=== PATIENT | female | born 1980 | race Caucasian/White ===

== ENCOUNTER 2018-11-26 16:51 | Observation (INO) ==
[2018-11-26 17:23] LABS: Basophils # (auto) 0.03 K/uL (0-0.2); Basophils % (auto) 0.3 %; Eosinophils # (auto) 0.17 K/uL (0-0.5); Eosinophils % (auto) 1.9 %; Hematocrit (blood only) 43.8 % (37-47); Hemoglobin 15.4 g/dL (12.0-16.0); Immature Granulocytes # (auto) 0.02 K/uL (0.00-0.02); Immature Granulocytes % (auto) 0.2 %; Lymphocytes # (auto) 2.39 K/uL (1.2-3.4); Lymphocytes % (auto) 26.3 %; Mean Corpuscular Hgb Conc 35.2 g/dL (32-36); Mean Corpuscular Volume 87.3 fL (80-100); Mean Platelet Volume 10.1 fL (7.4-10.4); Monocytes # (auto) 0.61 K/uL (0.11-0.59); Monocytes % (auto) 6.7 %; Neutrophils # (auto) 5.86 K/uL (1.4-6.5); Neutrophils % (auto) 64.6 %; Platelet Count 266 K/uL (130-400); RDW Coefficient of Variation 15.4 % (11.5-14.5); RDW Standard Deviation 49.4 fL (36.4-46.3); Red Blood Count 5.02 M/uL (4.2-5.4); White Blood Count 9.08 K/uL (4.8-10.8)
[2018-11-26 17:36] LABS: INR 1.1 (0.9-1.1); Partial Thromboplastin Ratio 1.1; Partial Thromboplastin Time 28.8 Seconds (21.0-31.0)
[2018-11-26 17:41] LABS: Alanine Aminotransferase 165 U/L (12-78); Albumin Level 4.4 gm/dl (3.4-5.0); Aspartate Aminotransferase 82 U/L (15-37); BUN Creatinine Ratio 9.3 (10-20); Blood Urea Nitrogen 7 mg/dl (7-18); Calcium 9.3 mg/dl (8.5-10.1); Carbon Dioxide 27 mmol/L (21-32); Chloride 106 mmol/L (98-107); Est GFR (African American) 129.2; Est GFR (Non-African American) 111.5; Glucose 99 mg/dl (70-99); Potassium 3.5 mmol/L (3.5-5.1); Sodium 139 mmol/L (136-145)
[2018-11-26 17:45] LABS: Albumin Globulin Ratio 1.2 (0.9-2); Alkaline Phosphatase 131 U/L (45-117); Bilirubin,Total 0.5 mg/dl (0.2-1); Globulin 3.7 gm/dl (2.5-4.0); Total Protein 8.1 gm/dl (6.4-8.2); Troponin I < 0.015 ng/ml (0-0.045)
--- NOTE | 2018-11-26 18:04 | XRay Report ---
XR chest 1V portable HISTORY: 37 years-old Female CP acute atypical chest pain COMPARISON: None available TECHNIQUE: Portable AP view of the chest FINDINGS: Cardiac mediastinal and hilar silhouettes are within normal limits. There is no pneumothorax, pleural effusion, focal airspace consolidation or overt pulmonary edema. Bones of the chest appear grossly i ntact. IMPRESSION: No acute process. The above report was generated using voice recognition software. It may contain grammatical, syntax o r spelling errors. Electronically signed by: Akash Londono M.D. 11/26/2018 6:02 PM
[2018-11-26] MEDS ORDERED: ASPIRIN CHEW 324 MG PO STA (18:14)
[2018-11-26 18:57] LABS: Creatine Kinase 118 U/L (26-192); Creatine Kinase MB < 1.0 ng/ml (0.5-3.6)
[2018-11-26] MEDS ORDERED: OPTIRAY 320 125ml IV PRN (19:17)
--- NOTE | 2018-11-26 19:24 | CT Scan Report ---
CT head/brain wo con CLINICAL HISTORY: 37 years-old Female with Pt c/o left arm numbness. Acute left arm numbness TECHNIQUE: Multiple axial CT images of the head were obtained without contrast. A dose lowering tech nique was utilized adhering to the principles of ALARA. CT DOSE: 537.48 mGy.cm COMPARISON: None. FINDINGS: No acute intracranial hemorrhage, midline shift, intracranial mass, hydrocephalus, territorial ischem ia or abnormal extra-axial collection. The calvarium is intact. The paranasal sinuses, mastoid air cells, and middle ear cavities are clear . IMPRESSION: No acute intracranial abnormality. The above report was generated using voice recognition software. It may contain grammatical, syntax o r spelling errors. Electronically signed by: Akash Londono M.D. 11/26/2018 7:22 PM
--- NOTE | 2018-11-26 19:42 | CT Scan Report ---
CT angio chest PE protocol CT DOSE: 235.43 mGy.cm HISTORY: 37 years-old Female with PE. Acute chest pain with headache TECHNIQUE: Multiple CTA images of the chest were obtained after the intravenous administration of 86 ml Optiray 320. Coronal and sagittal MIPS were obtained from the axial data set and were submitted f or review. All measurements were obtained according to NASCET criteria. A dose lowering technique wa s utilized adhering to the principles of ALARA. COMPARISON: Chest radiograph of same day. FINDINGS: CTA: Heart is normal in size without pericardial effusion. The thoracic aorta is normal in both course and caliber without aneurysm or dissection. There is patency of the imaged great vessels. The pulmonary arterial tree is opacified to the level of the subsegmental branches and demonstrates no focal fillin g defects suggest pulmonary thromboembolic disease. CT CHEST: Normal-appearing thyroid. No adenopathy by CT size criteria. No pneumothorax or pleural effusion. No focal airspace consolidation to suggest pneumonia. Mild biapical pleural-parenchymal scarring with mi ld subpleural bleb formation versus mild paraseptal emphysema. Likely benign 2 mm solid nodule of the left upper lobe, image 340 series 4. 2 mm solid nodule of the lingula on image 276 series 4. There a re a few additional solid nodules noted about the left lung measuring up to 3 mm on image 96 series 4 . Appearing fissural lymph node adjacent to the right middle lobe. Pleural-based 4 mm solid nodule of the lateral basal segment right lower lobe, image 65 series 4. Central airways appear patent. Prior cholecystectomy. No acute process of the imaged upper abdomen. Mild dilation of the intrahepati c neck hepatic biliary tree is likely postsurgical. lobulations noted about the left kidney. So ft tissues and breast parenchyma are unremarkable. Bones appear intact. IMPRESSION: 1. No acute intrathoracic abnormality identified, specifically no acute aortic pathology or evidence of thromboembolic disease. 2. No focal airspace consolidation, pleural effusion or adenopathy. 3. Mild biapical pleural-parenchymal scarring with mild upper lobe subpleural bleb formation versus p araseptal emphysema. 4. There are a few bilateral solid pulmonary nodules noted measuring up to 4 mm within the right lowe r lobe, likely benign. Please refer to below summary of Fleischner criteria recommendations for follow-up of incidental CT n priteshules Angélica Best, Guidelines for management of small pulmonary nodules detected on CT scans: A sta tement from the Fleischner Society, Radiology 237: [phone].) SOLID NODULES Multiple nodules size: <6 mm * Low risk patients: no routine follow-up * high risk patients: optional CT at 12 months Note: newly detected indeterminate nodule in persons 35 years of age or older. * Low risk patients: minimal or absent history of smoking and/or other known risk factors * high risk patients: history of smoking or of other known risk factors (e.g. first degree relative with lung cancer, or exposure to asbestos, radon, uranium) * if a nodule up to 8 mm is partly solid or is ground glass further follow-up is required after 24 m onths to exclude possible slow growing adenocarcinoma (LUCIE) The above report was generated using voice recognition software. It may contain grammatical, syntax o r spelling errors. Electronically signed by: Akash Londono M.D. 11/26/2018 7:40 PM
[2018-11-26 20:35] LABS: Magnesium 2.1 mg/dl (1.8-2.4)
[2018-11-26] MEDS ORDERED: NITROGLYCERIN SL 0.4 MG/TAB TAB SL STA (21:42)
[2018-11-26] MEDS ORDERED: LACTATED RINGER'S 1,000 ML IV ONE (21:43)
--- NOTE | 2018-11-26 21:43 | History & Physical Report ---
Date of Service November 26, 2018 Assessment & Plan (1) Chest pain: Relieved by nitro Rule out ACS Possibly anxiety related Headache ? Anxiety related Transaminitis Patient asymptomatic. hx cerebral aneurysm Stable size as per recent [place] [facility] [place] last 2016 Patient scheduled for outpatient MRA by [facility] [place] for follow-up psychosomatic seizure as per records, stable ongoing tobacco abuse OBS Medical telemetry Follow troponin TTE, Cardiology consult RE chest pain Aspirin until ACS ruled out Follow LFTs, liver ultrasound if with progression Further management pending work-up results Nicotine patch as needed DVT prophylaxis. SCDs RE history cerebral aneurysm Full code History of Present Illness Chief Complaint: Chest pain Primary Care Provider: Fara Fine PA-C History obtained from patient, family, and records. Medical history significant for cerebral aneurysm, psychosomatic seizure as per records, ongoing tobacco abuse. Early this morning patient woke up with severe crushing chest pain with some shortness of breath. No cough symptoms. No previous episodes. Chest pain later noted to become dull. No recollection of recent trauma or exertion. Denies abdominal pain symptoms. Patient later noted left-sided achy headache without nausea and vomiting symptoms No head trauma. Symptoms could be from anxiety as per patient. Patient seen at PCPs office. EKG showed Q waves in the anterior leads as per outpatient note. Patient given ASA upon arrival to the ER. Chest pain not as bad now as per patient. Chest pain relieved by nitro given at the ER. Worsening headache with nitro SL administration. Medical History as above Surgical History : section, hysteroscopy, endometrial ablation, BTL, cholecystectomy Family History : Lung cancer, lymphoma Personal/Social history : Few cigarettes a day, no EtOH intake, activities officer Allergies Allergy/AdvReac Type Severity Reaction Status Date / Time Penicillins Allergy Rash Unverified 11/26/18 18:06 Home Medications Home Medications Medication Instructions Recorded Confirmed Type citalopram [Celexa] 10 mg PO DAILY 11/26/18 11/26/18 History Past Med/Surg History Medical History Aneurysm Surgical History History of cholecystectomy Social History Preferred Language: Bulgarian Communication Ability: Effective Tube Operator Required: No Beliefs That Will Affect Care: None Current Living Situation: Alone Feels Safe at Home: Yes Safety Concerns: Feels Safe At This Time Smoking Status: Current every day smoker Tobacco Type: cigarettes Cigarettes Per Day: 2 Do You Dip or Chew Tobacco: No Second Hand Exposure: No Tobacco Cessation Education Requested by Patient: Yes Hx Alcohol Use: No Hx Substance Use: No Review of Systems Review of Systems: As per HPI, all 10 systems reviewed, all other ROS negative Physical Exam Physical Exam: GENERAL: Slightly anxious, looks older than stated age, no respiratory distress, thin frame SKIN: Normal color, warm HEENT: [place] palpebral conjunctivae, no ptosis, dry buccal mucosa NECK : Supple, no tenderness CHEST : CTA, no tenderness HEART : RRR, no obvious murmurs ABDOMEN: Some distention, nontender EXTREMITIES : No LE swelling/tenderness, no other conspicuous deformities noted NEUROLOGIC : Coherent, no facial asymmetry, no other gross focality Results & Data Vital Signs (Past 12 Hours) Vital Signs Temp Pulse Pulse Resp BP BP Pulse Ox 11/26/18 18:51 92 H 13 107/78 99 11/26/18 16:58 37.0 C 93 H 20 150/97 H 99 Laboratory Results Laboratory Results WBC 9.08 K/uL (4.8-10.8) 11/26/18 17:06 RBC 5.02 M/uL (4.2-5.4) 11/26/18 17:06 Hgb 15.4 g/dL (12.0-16.0) 11/26/18 17:06 Hct 43.8 % (37-47) 11/26/18 17:06 MCV 87.3 fL (80-100) 11/26/18 17:06 MCH 30.7 pg (25-34) 11/26/18 17:06 MCHC 35.2 g/dL (32-36) 11/26/18 17:06 RDW Std Deviation 49.4 fL (36.4-46.3) H 11/26/18 17:06 RDW Coeff of Pablo 15.4 % (11.5-14.5) H 11/26/18 17:06 Plt Count 266 K/uL (130-400) 11/26/18 17:06 MPV 10.1 fL (7.4-10.4) 11/26/18 17:06 Immature Gran % (Auto) 0.2 % 11/26/18 17:06 Neut % (Auto) 64.6 % 11/26/18 17:06 Lymph % (Auto) 26.3 % 11/26/18 17:06 Wilkinson % (Auto) 6.7 % 11/26/18 17:06 Eos % (Auto) 1.9 % 11/26/18 17:06 Baso % (Auto) 0.3 % 11/26/18 17:06 Immature Gran # (Auto) 0.02 K/uL (0.00-0.02) 11/26/18 17:06 Neut # (Auto) 5.86 K/uL (1.4-6.5) 11/26/18 17:06 Lymph # (Auto) 2.39 K/uL (1.2-3.4) 11/26/18 17:06 Wilkinson # (Auto) 0.61 K/uL (0.11-0.59) H 11/26/18 17:06 Eos # (Auto) 0.17 K/uL (0-0.5) 11/26/18 17:06 Baso # (Auto) 0.03 K/uL (0-0.2) 11/26/18 17:06 PT 11.0 Seconds (9.0-12.0) 11/26/18 17:06 INR 1.1 (0.9-1.1) 11/26/18 17:06 APTT 28.8 Seconds (21.0-31.0) 11/26/18 17:06 PTT Ratio 1.1 11/26/18 17:06 Sodium 139 mmol/L (136-145) 11/26/18 17:06 Potassium 3.5 mmol/L (3.5-5.1) 11/26/18 17:06 Chloride 106 mmol/L (98-107) 11/26/18 17:06 Carbon Dioxide 27 mmol/L (21-32) 11/26/18 17:06 Anion Gap 6.0 (3-11) 11/26/18 17:06 BUN 7 mg/dl (7-18) 11/26/18 17:06 Creatinine 0.70 mg/dl (0.6-1.2) 11/26/18 17:06 Est Cr Clr Drug Dosing Not Reportable 11/26/18 17:06 Est GFR ( Amer) 129.2 11/26/18 17:06 Est GFR (Non-Af Amer) 111.5 11/26/18 17:06 BUN/Creatinine Ratio 9.3 (10-20) L 11/26/18 17:06 Glucose 99 mg/dl (70-99) 11/26/18 17:06 Calcium 9.3 mg/dl (8.5-10.1) 11/26/18 17:06 Magnesium 2.1 mg/dl (1.8-2.4) 11/26/18 17:06 Total Bilirubin 0.5 mg/dl (0.2-1) 11/26/18 17:06 AST 82 U/L (15-37) H 11/26/18 17:06 ALT 165 U/L (12-78) H 11/26/18 17:06 Alkaline Phosphatase 131 U/L (45-117) H 11/26/18 17:06 Total Creatine Kinase 118 U/L (26-192) 11/26/18 17:06 CK-MB (CK-2) < 1.0 ng/ml (0.5-3.6) 11/26/18 17:06 CK/CKMB % Calc TNP 11/26/18 17:06 Troponin I < 0.015 ng/ml (0-0.045) 11/26/18 17:06 Total Protein 8.1 gm/dl (6.4-8.2) 11/26/18 17:06 Albumin 4.4 gm/dl (3.4-5.0) 11/26/18 17:06 Globulin 3.7 gm/dl (2.5-4.0) 11/26/18 17:06 Albumin/Globulin Ratio 1.2 (0.9-2) 11/26/18 17:06 Lipase 60 U/L (73-393) L 11/26/18 17:[address] head: No acute pathology CT chest: 1. No acute intrathoracic abnormality identified, specifically no acute aortic pathology or evidence of thromboembolic disease. 2. No focal airspace consolidation, pleural effusion or adenopathy. 3. Mild biapical pleural-parenchymal scarring with mild upper lobe subpleural bleb formation versus paraseptal emphysema. 4. There are a few bilateral solid pulmonary nodules noted measuring up to 4 mm within the right lower lobe, likely benign. EKG as per my interpretation rate 75, NSR, incomplete RBBB, T wave flattening septal leads (1) Chest pain Chest pain type: unspecified Qualified Code(s): R07.9 - Chest pain, unspecified
[2018-11-26] MEDS ORDERED: NITROGLYCERIN SL 0.4 MG/TAB TAB ONE (21:46)
[2018-11-26] MEDS ORDERED: PROCHLORPERAZINE 5 MG in SYRINGE 4 ML IV PRN (21:50)
[2018-11-26] MEDS ORDERED: TRAMADOL HCL 50 MG TABLET PO PRN (21:50)
[2018-11-26] MEDS ORDERED: ACETAMINOPHEN 325 MG TAB PO PRN (21:50)
[2018-11-26] MEDS ORDERED: hydrOXYzine HCl 10 MG TAB PO PRN (21:50)
[2018-11-26 22:31] LABS: Lyme Ab IgG w/WB Rflx Negative (Negative); Lyme Ab IgM w/WB Rflx Negative (Negative)
[2018-11-27] MEDS ORDERED: OXYCODONE HCL IR 5 MG TAB (IMMEDIATE RELEASE) PO PRN (02:39)
[2018-11-27 04:19] LABS: Alanine Aminotransferase 110 U/L (12-78); Albumin Level 3.5 gm/dl (3.4-5.0); Aspartate Aminotransferase 44 U/L (15-37); BUN Creatinine Ratio 13.3 (10-20); Blood Urea Nitrogen 10 mg/dl (7-18); Calcium 8.3 mg/dl (8.5-10.1); Carbon Dioxide 29 mmol/L (21-32); Chloride 108 mmol/L (98-107); Creatinine Clr Calc Pharmacy 84.3 ml/min; Est GFR (African American) 122.8; Glucose 92 mg/dl (70-99); Sodium 139 mmol/L (136-145)
[2018-11-27 04:26] LABS: Albumin Globulin Ratio 1.1 (0.9-2); Alkaline Phosphatase 106 U/L (45-117); Bilirubin,Total 0.4 mg/dl (0.2-1); Globulin 3.1 gm/dl (2.5-4.0); Total Protein 6.6 gm/dl (6.4-8.2); Troponin I < 0.015 ng/ml (0-0.045)
[2018-11-27] MEDS ORDERED: CALCIUM GLUCONATE 10% 1,000 MG in SODIUM CHLORIDE 0.9% 50 ML IV STA (05:39)
[2018-11-27 06:15] LABS: Pregnancy Test, Serum Negative (Negative)
--- NOTE | 2018-11-27 07:41 | Hospitalist Progress Note ---
Date of Service November 27, 2018 Assessment & Plan (1) Chest pain: CHEST PAIN, ATYPICAL Relieved by NTG. Contributing factor: Anxiety Risk factors: Tobacco abuse -EKG- no acute ischemic changes, Incomplete RBBB, Trop x 2 negative -Echo- EF normal, no wall motion abnormalities -CXR- Neg, CT chest- No PE, Mild biapical pleural-parenchymal scarring with mild upper lob subpleural bleb formation vs paraseptal emphysema. Few bilateral pulmonary nodules -Cardiology consulted- discussed with Dr Pierce- plan is to do outpatient stress test. Ok to discharge home today. TRANSAMINITS, MILD Trending down -Unclear etiology -Monitor trend outpatient. -Avoid NSAIDS, Tylenol > 2 gram HX OF CEREBRAL ANEURSYM -Stable size as per recent [place] [facility] [place] -Patient scheduled for outpatient [place] [facility] [place]up PSYCHOSOMATIC SEIZURES as per records, stable TOBACCO ABUSE DISORDER Counseling done DVT PROPHYLAXIS. SCDs RE history cerebral aneurysm FULL CODE DISPOSITION Ok to discharge home today Cleared for discharge by cardiology. Outpatient stress test arrangements will be done by cardiology Subjective Patient denies any chest pain since admission. No shortness of breath, cough, fever, chills, leg swelling. Not hypoxic, saturating well on room air Physical Exam Constitutional: WD/WN, vitals as above Neck: normal visual inspection Respiratory: normal respiratory effort, lungs clear to auscultation Cardiovascular: RRR, no murmur, no edema Results & Data Vital Signs (Past 12 Hours) Vital Signs Temp Pulse Pulse Resp BP BP Pulse Ox 11/27/18 07:23 37.0 C 66 20 104/64 96 11/27/18 04:52 94/61 L 11/27/18 04:11 36.6 C 77 16 89/65 L 96 11/26/18 23:05 36.6 C 71 18 102/64 97 11/26/18 22:49 81 11/26/18 22:42 36.7 C 76 18 99/67 L 97 11/26/18 22:01 85 16 96 11/26/18 22:00 96 H 16 97/64 L 96 11/26/18 21:31 77 16 98 11/26/18 21:30 81 16 122/76 98 11/26/18 21:01 86 17 116/80 98 11/26/18 21:00 88 21 99 11/26/18 20:31 74 19 98 11/26/18 20:30 78 21 127/80 98 11/26/18 20:01 74 20 98 11/26/18 20:00 78 18 100/76 99 (1) Chest pain Chest pain type: unspecified Qualified Code(s): R07.9 - Chest pain, unspecified
[2018-11-27] MEDS ORDERED: CITALOPRAM 20 MG TAB PO SCH (09:00)
[2018-11-27] MEDS ORDERED: ASPIRIN 81 MG ECTAB PO SCH (09:00)
--- NOTE | 2018-11-27 10:30 | Cardiology Consultation ---
Date of Consultation November 27, 2018 Assessment & Plan (1) Chest pain, atypical: The patient has had negative cardiac markers. Resting echocardiogram reveals normal LV function and no evidence of ischemic heart disease. The patient has an incidental finding of an incomplete right bundle branch block on her EKG. I believe that she could be discharged home with a follow-up stress test as an outpatient. I can arrange for that stress test for early next week. (2) Panic attacks: (3) Smoker: I counseled the patient on the need to stop smoking. History of Present Illness Attending Physician: Gracia Birch History of Present Illness This is a 37-year-old female with a history anxiety, panic attacks and pseudoseizures. She has a history of small cerebral aneurysms and is followed by neurosurgery at [facility] however, I believe they are not clinically significant. She has no prior history of heart disease. She is an active smoker. She has no history of diabetes, cholesterol or hypertension. She states that she has not had a panic attack for several months however on the day of admission she was awoken from sleep with chest heaviness and paresthesias down her arms. She thought it was due to another panic attack however, she was seen at her primary care physician's office and referred to the emergency department. The patient did have an EKG performed at the PCP office and again on admission which indicates an incomplete right bundle branch block. No prior EKGs are available for comparison. After admission, cardiac markers have been negative. She has had no additional chest pain. A resting echocardiogram performed this morning indicates no wall motion abnormalities that would suggest ischemic heart disease. She has normal right and left ventricular systolic function and no significant valvular pathology. Allergies Allergy/AdvReac Type Severity Reaction Status Date / Time Penicillins Allergy Rash Unverified 11/26/18 18:06 Home Medications Home Medications Medication Instructions Recorded Confirmed Type citalopram [Celexa] 10 mg PO DAILY 11/26/18 11/26/18 History Patient History Medical History Aneurysm Surgical History History of cholecystectomy Social History Preferred Language: Austrian Communication Ability: Effective Clothing Worker Required: No Beliefs That Will Affect Care: None Current Living Situation: Alone Feels Safe at Home: Yes Safety Concerns: Feels Safe At This Time Smoking Status: Current every day smoker Tobacco Type: cigarettes Cigarettes Per Day: 2 Do You Dip or Chew Tobacco: No Second Hand Exposure: No Tobacco Cessation Education Requested by Patient: Yes Hx Alcohol Use: No Hx Substance Use: No Review of Systems Review of Systems: Review of Systems: See HPI for pertinent positives. All other 10 point review of systems are negative. Physical Exam Physical Exam: General: no acute distress and stated age Head: normocephalic, no masses, lesions, tenderness or abnormalities Eyes: conjunctiva are pink and non-injected, sclera clear Neck: supple, no adenopathy, no bruits, normal jugular venous pulse, no hepatojugular reflux Chest: normal shape and normal respiratory effort Lungs: clear to auscultation and percussion Cardiac Exam: - regular rate & rhythm, no murmurs gallops or rubs - normal S1, normal S2 Pulses: 2(+) throughout Abdomen: abdomen soft, non-tender, no abnormal masses and no hepatosplenomegaly Musculoskeletal: no gait disturbance, no joint inflammation, no deforming arthritis Extremities: no edema and no cyanosis Neuro: grossly normal exam Results & Data Vital Signs (Past 12 Hours) Vital Signs Temp Pulse Pulse Resp BP Pulse Ox 11/27/18 07:49 72 11/27/18 07:23 37.0 C 66 20 104/64 96 11/27/18 04:52 94/61 L 11/27/18 04:11 36.6 C 77 16 89/65 L 96 11/26/18 23:05 36.6 C 71 18 102/64 97 11/26/18 22:49 81 11/26/18 22:42 36.7 C 76 18 99/67 L 97 Laboratory Results Laboratory Results - last 24 hr 11/26/18 11/26/18 11/26/18 17:01 17:06 17:06 WBC 9.08 RBC 5.02 Hgb 15.4 Hct 43.8 MCV 87.3 MCH 30.7 MCHC 35.2 RDW Std Deviation 49.4 H RDW Coeff of Pablo 15.4 H Plt Count 266 MPV 10.1 Immature Gran % (Auto) 0.2 Neut % (Auto) 64.6 Lymph % (Auto) 26.3 [place] % (Auto) 6.7 Eos % (Auto) 1.9 Baso % (Auto) 0.3 Immature Gran # (Auto) 0.02 Neut # (Auto) 5.86 Lymph # (Auto) 2.39 [place] # (Auto) 0.61 H Eos # (Auto) 0.17 Baso # (Auto) 0.03 ESR 25 H PT 11.0 INR 1.1 APTT 28.8 PTT Ratio 1.1 Sodium Potassium Chloride Carbon Dioxide Anion Gap BUN Creatinine Est Cr Clr Drug Dosing Est GFR ( Amer) Est GFR (Non-Af Amer) BUN/Creatinine Ratio Glucose Calcium Magnesium Total Bilirubin AST ALT Alkaline Phosphatase Total Creatine Kinase CK-MB (CK-2) CK/CKMB % Calc Troponin I Total Protein Albumin Globulin Albumin/Globulin Ratio Lipase HCG, Qual Lyme Disease IgG Ab Lyme Disease IgM Ab 11/26/18 11/26/18 11/26/18 17:06 17:06 17:06 WBC RBC Hgb Hct MCV MCH MCHC RDW Std Deviation RDW Coeff of Pablo Plt Count MPV Immature Gran % (Auto) Neut % (Auto) Lymph % (Auto) [place] % (Auto) Eos % (Auto) Baso % (Auto) Immature Gran # (Auto) Neut # (Auto) Lymph # (Auto) [place] # (Auto) Eos # (Auto) Baso # (Auto) ESR PT INR APTT PTT Ratio Sodium 139 Potassium 3.5 Chloride 106 Carbon Dioxide 27 Anion Gap 6.0 BUN 7 Creatinine 0.70 Est Cr Clr Drug Dosing Not Reportable Est GFR ( Amer) 129.2 Est GFR (Non-Af Amer) 111.5 BUN/Creatinine Ratio 9.3 L Glucose 99 Calcium 9.3 Magnesium 2.1 Total Bilirubin 0.5 AST 82 H ALT 165 H Alkaline Phosphatase 131 H Total Creatine Kinase 118 CK-MB (CK-2) < 1.0 CK/CKMB % Calc TNP Troponin I < 0.015 Total Protein 8.1 Albumin 4.4 Globulin 3.7 Albumin/Globulin Ratio 1.2 Lipase 60 L HCG, Qual Lyme Disease IgG Ab Lyme Disease IgM Ab 11/26/18 11/26/18 11/26/18 17:07 17:07 23:12 WBC RBC Hgb Hct MCV MCH MCHC RDW Std Deviation RDW Coeff of Pablo Plt Count MPV Immature Gran % (Auto) Neut % (Auto) Lymph % (Auto) [place] % (Auto) Eos % (Auto) Baso % (Auto) Immature Gran # (Auto) Neut # (Auto) Lymph # (Auto) [place] # (Auto) Eos # (Auto) Baso # (Auto) ESR PT INR APTT PTT Ratio Sodium Potassium Chloride Carbon Dioxide Anion Gap BUN Creatinine Est Cr Clr Drug Dosing Est GFR ( Amer) Est GFR (Non-Af Amer) BUN/Creatinine Ratio Glucose Calcium Magnesium Total Bilirubin AST ALT Alkaline Phosphatase Total Creatine Kinase CK-MB (CK-2) CK/CKMB % Calc Troponin I < 0.015 Total Protein Albumin Globulin Albumin/Globulin Ratio Lipase HCG, Qual Negative Lyme Disease IgG Ab Negative Lyme Disease IgM Ab Negative 11/27/18 03:46 WBC RBC Hgb Hct MCV MCH MCHC RDW Std Deviation RDW Coeff of Pablo Plt Count MPV Immature Gran % (Auto) Neut % (Auto) Lymph % (Auto) [place] % (Auto) Eos % (Auto) Baso % (Auto) Immature Gran # (Auto) Neut # (Auto) Lymph # (Auto) [place] # (Auto) Eos # (Auto) Baso # (Auto) ESR PT INR APTT PTT Ratio Sodium 139 Potassium 4.0 Chloride 108 H Carbon Dioxide 29 Anion Gap 2.0 L BUN 10 Creatinine 0.73 Est Cr Clr Drug Dosing 84.3 Est GFR ( Amer) 122.8 Est GFR (Non-Af Amer) 106.0 BUN/Creatinine Ratio 13.3 Glucose 92 Calcium 8.3 L Magnesium Total Bilirubin 0.4 AST 44 H ALT 110 H Alkaline Phosphatase 106 Total Creatine Kinase CK-MB (CK-2) CK/CKMB % Calc Troponin I < 0.015 Total Protein 6.6 Albumin 3.5 Globulin 3.1 Albumin/Globulin Ratio 1.1 Lipase HCG, Qual Lyme Disease IgG Ab Lyme Disease IgM Ab Medications Administered Current Inpatient Medications Acetaminophen (Tylenol) 325 mg PO Q6H PRN PRN Reason: Pain or Fever Stop: 12/26/18 21:49 Aspirin (Ecotrin Ectab) [facility] [place] Stop: 12/27/18 08:59 Last Admin: 11/27/18 08:22 Dose: 81 mg Documented by: Citalopram Hydrobromide (Celexa) 10 mg PO DAILY [facility] Stop: 12/27/18 08:59 Last Admin: 11/27/18 08:22 Dose: 10 mg Documented by: Hydroxyzine HCl (Vistaril) 10 mg PO Q6H PRN PRN Reason: Anxiety Stop: 12/26/18 21:49 Prochlorperazine 5 mg/ Syringe 5 mls @ 5 mls/min IV Q6H PRN PRN Reason: Nausea And Vomiting Stop: 12/26/18 21:49 Oxycodone HCl (Roxicodone Immediate Rel) 5 mg PO Q4H PRN PRN Reason: Pain Stop: 12/11/18 02:38
--- NOTE | 2018-11-27 10:47 | Discharge Summary ---
Date of Service November 27, 2018 Admission HPI Per Admitting Provider History obtained from patient, family, and records. Medical history significant for cerebral aneurysm, psychosomatic seizure as per records, ongoing tobacco abuse. Early this morning patient woke up with severe crushing chest pain with some shortness of breath. No cough symptoms. No previous episodes. Chest pain later noted to become dull. No recollection of recent trauma or exertion. Denies abdominal pain symptoms. Patient later noted left-sided achy headache without nausea and vomiting symptoms No head trauma. Symptoms could be from anxiety as per patient. Patient seen at PCPs office. EKG showed Q waves in the anterior leads as per outpatient note. Patient given ASA upon arrival to the ER. Chest pain not as bad now as per patient. Chest pain relieved by nitro given at the ER. Worsening headache with nitro SL administration. Medical History as above Surgical History : section, hysteroscopy, endometrial ablation, BTL, cholecystectomy Family History : Lung cancer, lymphoma Personal/Social history : Few cigarettes a day, no EtOH intake, placement officer Principal Diagnosis 1. Chest pain, atypical, acute myocardial infarction ruled out 2. Mild transaminitis Secondary diagnoses on discharge 1. History of cerebral aneurysm 2. History of psychosomatic seizures 3. Tobacco abuse disorder Discharge Exam Constitutional: WD/WN, vitals as above Neck: normal visual inspection Respiratory: normal respiratory effort, lungs clear to auscultation Cardiovascular: RRR, no murmur, no edema Discharge Data Allergies Allergy/AdvReac Type Severity Reaction Status Date / Time Penicillins Allergy Rash Unverified 11/26/18 18:06 Consultations 11/26/18 20:21 ED Decision to Admit Stat 11/27/18 05:34 Consult Cardiology Routine Ordered Studies 11/26/18 18:13 CT angio chest PE protocol Stat CT head/brain wo con Stat Hospital Course (1) Chest pain: CHEST PAIN, ATYPICAL Relieved by NTG. Contributing factor: Anxiety Risk factors: Tobacco abuse -EKG- no acute ischemic changes, Incomplete RBBB, Trop x 2 negative -Echo- EF normal, no wall motion abnormalities -CXR- Neg, CT chest- No PE, Mild biapical pleural-parenchymal scarring with mild upper lob subpleural bleb formation vs paraseptal emphysema. Few bilateral pulmonary nodules -Cardiology consulted- discussed with Dr Pierce- plan is to do outpatient stress test. Ok to discharge home today. TRANSAMINITS, MILD Trending down -Unclear etiology -Monitor trend outpatient. -Avoid NSAIDS, Tylenol > 2 gram HX OF CEREBRAL ANEURSYM -Stable size as per recent outpatient [facility] Neurosurgery follow-up last 2016 -Patient scheduled for outpatient MRA by [facility] Neurosurgery for follow-up PSYCHOSOMATIC SEIZURES as per records, stable TOBACCO ABUSE DISORDER Counseling done DVT PROPHYLAXIS. SCDs RE history cerebral aneurysm FULL CODE DISPOSITION Ok to discharge home today Cleared for discharge by cardiology. Outpatient stress test arrangements will be done by cardiology Total Time Total Time Spent Total Time Spent (In Minutes): 20 minutes Discharge Plan Discharge Items Patient Disposition: Home - Self-Care Reason For Visit: CP Discharge Diagnosis: 1. Chest pain, acute heart attack ruled out Discharge Goals: Decrease discomfort Activity: Resume your previous activity Non-emergency contact: Primary Care Provider Call non-emergency contact if: your symptoms worsen Follow-up/Referrals: Fara Fine PA-C [Primary Care Provider] - (We will call you for post hospital follow up appt date/time) Diet: Regular Addtl Provider Instructions: MEDICATION CHANGES None You will receive call from cardiology office for outpatient stress test a ppointment Prescriptions: Continued citalopram [Celexa] 10 mg Tablet 10 mg PO DAILY RF: 0 Stand-Alone Forms: Call Back Authorization, [facility] Discharge Orders: Discharge Order (Routine); Ordered 11/27/18 Ordered By: Gracia Birch Admission Data Admit Date/Time: 11/26/18 21:49 Attending Provider: Gracia Birch Admit Provider: Gracia Birch Primary Care Provider: Fara Fine Other Providers: Juaquin Cruz ; Dejuan Pierce Service: Telemetry Medical
--- NOTE | 2018-11-28 20:25 | Emergency Department Note ---
Entered by Rahul Ryan acting as a scribe for Scotty Mercedes MD History of Present Illness General Chief complaint: Chest Pain Stated complaint: CHEST PAIN, ABNORMAL EKG Time Seen by Provider: 11/26/18 17:47 Source: patient History of Present Illness Onset (ago): day(s) (a couple) Location: chest Pain Consistency: + now resolved (but still occasional pain) Quality: + other (pressure) Associated symptoms: + headaches and + other (denies abdominal pain) The patient is a 37 year old female who presents to the Emergency Room with complaints of currently resolved chest pain beginning a couple of days ago. The patient reports that a couple of days ago she was experiencing pressure in her chest, numbness in the left hand, pressure in the neck, and a headache. She states that today she has occasional pain in the chest, but nothing like before and not currently. She received an EKG at her [facility]Ps office prior to arrival, and she was sent to the ER for further evaluation. The patient states that she regularly smokes cigarettes. She denies abdominal pain or chance of . Her last period was two weeks ago. She states that she takes Celexa but no other medications. She notes a history of cholecystectomy. She denies a history of diabetes. 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 Home Medications Home Medications Medication Instructions Recorded Confirmed Type citalopram [Celexa] 10 mg PO DAILY 11/26/18 11/26/18 History Allergies Allergy/AdvReac Type Severity Reaction Status Date / Time Penicillins Allergy Rash Unverified 11/26/18 18:06 Past Med/Surg History Medical History Aneurysm Surgical History History of cholecystectomy Social History Preferred Language: Divehi Communication Ability: Effective Heel Layer Required: No Beliefs That Will Affect Care: None Current Living Situation: Alone Feels Safe at Home: Yes Safety Concerns: Feels Safe At This Time Smoking Status: Current every day smoker Tobacco Type: cigarettes Cigarettes Per Day: 2 Do You Dip or Chew Tobacco: No Second Hand Exposure: No Tobacco Cessation Education Requested by Patient: Yes Hx Alcohol Use: No Hx Substance Use: No Review of Systems See HPI for pertinent positives & negatives. and A total of 10 systems reviewed and were otherwise negative Physical Exam Vital Signs Vital Signs - 24 hr 11/26/18 16:58 11/26/18 18:51 Temperature 98.6 F Temperature Source Oral Sepsis Recent Fever Within 48 Hours No Sepsis New/Unexplained Change in Mental Status No Sepsis Action Taken by Nursing No Action Required Pulse Rate 93 H Pulse Rate [Left Finger] 92 H Pulse Rhythm Regular Pulse Strength Normal Respiratory Rate 20 13 Respiratory Effort / Characteristics Non-Labored Spontaneous Non-Labored Respiratory Depth Normal Normal Respiratory Pattern Regular Regular Blood Pressure 150/97 H Blood Pressure [Left Arm] 107/78 Blood Pressure Mean 114 Blood Pressure Mean [Left Arm] 87 Blood Pressure Position Sitting Pulse Oximetry 99 99 Oxygen Delivery Method Room Air Room Air GENERAL: Awake, alert, well-appearing, in no acute distress HENT: Normocephalic, atraumatic. Oropharynx unremarkable. EYES: Normal conjunctiva. Sclera non-icteric. NECK: Supple. No nuchal rigidity. FROM. No JVD. RESPIRATORY: Clear to auscultation. CARDIAC: Regular rate, normal rhythm. Extremities warm and well perfused. Pulses equal. ABDOMEN: Soft, non-distended. No tenderness to palpation. No rebound or guarding. No masses. RECTAL: Deferred. MUSCULOSKELETAL: Chest examination reveals no tenderness. The back is symmetrical on inspection without obvious abnormality. There is no CVA tenderness to palpation. No joint edema. LOWER EXTREMITIES: Calves are equal size bilaterally and non-tender. No edema. No discoloration. NEURO: Normal sensorium. No sensory or motor deficits noted. SKIN: No rash or jaundice noted. Course 1807: The patient was evaluated in room C9. A complete history and physical examination were performed. 2154: I consulted Dr. Nancy Esquivel Hospitalist. The patient will be reevaluated for hospitalization. Administered Medications Discontinued Medications Aspirin (Aspirin) 324 mg PO NOW STA Stop: 11/26/18 18:15 Last Admin: 11/26/18 18:49 Dose: 324 mg Documented by: [id number] Aspirin (Ecotrin Ectab) 81 mg PO QAM [facility] Stop: 12/27/18 08:59 Last Admin: 11/27/18 08:22 Dose: 81 mg Documented by: [id number] Citalopram Hydrobromide (Celexa) 10 mg PO DAILY PRABHA Stop: 12/27/18 08:59 Last Admin: 11/27/18 08:22 Dose: 10 mg Documented by: [id number] Lactated Ringer's (Lr) 1,000 mls @ 80 mls/hr IV .[id number] ONE Stop: 11/27/18 10:12 Last Admin: 11/26/18 22:40 Dose: 80 mls/hr Documented by: [id number] Calcium Gluconate 1,000 mg/ (Sodium Chloride) 60 mls @ 240 mls/hr IV NOW STA Stop: 11/27/18 05:53 Last Infusion: 11/27/18 06:20 Dose: 0 mls/hr Documented by: [id number] Admin: 11/27/18 06:03 Dose: 240 mls/hr Documented by: [id number] Ioversol (Optiray 320 125ml) 86 ml IV ONCE PRN PRN Reason: Interaction Checking Stop: 11/30/18 19:16 Last Admin: 11/26/18 19:18 Dose: 86 ml Documented by: [id number] Nitroglycerin (Nitrostat) Confirm Administered Dose 0.4 mg .ROUTE .STK-MED ONE Stop: 11/26/18 21:47 Last Admin: 11/26/18 21:49 Dose: 0.4 mg Documented by: [id number] Medical Decision Making Differential Diagnosis Differential diagnosis includes: cardiac ischemia, aortic dissection, pulmonary embolism, pneumonia, pneumothorax, musculoskeletal, infections, pericarditis, myocarditis, esophageal rupture, gastrointestinal, as well as others were entertained. Medical Records Attestation: I reviewed the patient's medical records. Home Medications Current Medication List: was personally reviewed by me Laboratory Data Attestation: I reviewed the patient's lab results. Result diagrams: 11/26/18 17:06 11/27/18 03:46 Lab Results 11/26/18 11/26/18 11/26/18 Range/Units 17:01 17:06 17:06 WBC 9.08 (4.8-10.8) K/uL RBC 5.02 (4.2-5.4) M/uL Hgb 15.4 (12.0-16.0) g/dL Hct 43.8 (37-47) % MCV 87.3 (80-100) fL MCH 30.7 (25-34) pg MCHC 35.2 (32-36) g/dL RDW Std Deviation 49.4 H (36.4-46.3) fL RDW Coeff of Pablo 15.4 H (11.5-14.5) % Plt Count 266 (130-400) K/uL MPV 10.1 (7.4-10.4) fL Immature Gran % (Auto) 0.2 % Neut % (Auto) 64.6 % Lymph % (Auto) 26.3 % [place] % (Auto) 6.7 % Eos % (Auto) 1.9 % Baso % (Auto) 0.3 % Immature Gran # (Auto) 0.02 (0.00-0.02) K/uL Neut # (Auto) 5.86 (1.4-6.5) K/uL Lymph # (Auto) 2.39 (1.2-3.4) K/uL [place] # (Auto) 0.61 H (0.11-0.59) K/uL Eos # (Auto) 0.17 (0-0.5) K/uL Baso # (Auto) 0.03 (0-0.2) K/uL ESR 25 H (0-21) mm/hr PT 11.0 (9.0-12.0) Seconds INR 1.1 (0.9-1.1) APTT 28.8 (21.0-31.0) Seconds PTT Ratio 1.1 Sodium (136-145) mmol/L Potassium (3.5-5.1) mmol/L Chloride (98-107) mmol/L Carbon Dioxide (21-32) mmol/L Anion Gap (3-11) BUN (7-18) mg/dl Creatinine (0.6-1.2) mg/dl Est Cr Clr Drug Dosing Est GFR ( Amer) Est GFR (Non-Af Amer) BUN/Creatinine Ratio (10-20) Glucose (70-99) mg/dl Calcium (8.5-10.1) mg/dl Magnesium (1.8-2.4) mg/dl Total Bilirubin (0.2-1) mg/dl AST (15-37) U/L ALT (12-78) U/L Alkaline Phosphatase (45-117) U/L Total Creatine Kinase (26-192) U/L CK-MB (CK-2) (0.5-3.6) ng/ml CK/CKMB % Calc Troponin I (0-0.045) ng/ml Total Protein (6.4-8.2) gm/dl Albumin (3.4-5.0) gm/dl Globulin (2.5-4.0) gm/dl Albumin/Globulin Ratio (0.9-2) Lipase (73-393) U/L HCG, Qual (Negative) Lyme Disease IgG Ab (Negative) Lyme Disease IgM Ab (Negative) 11/26/18 11/26/18 11/26/18 Range/Units 17:06 17:06 17:06 WBC (4.8-10.8) K/uL RBC (4.2-5.4) M/uL Hgb (12.0-16.0) g/dL Hct (37-47) % MCV (80-100) fL MCH (25-34) pg MCHC (32-36) g/dL RDW Std Deviation (36.4-46.3) fL RDW Coeff of Pablo (11.5-14.5) % Plt Count (130-400) K/uL MPV (7.4-10.4) fL Immature Gran % (Auto) % Neut % (Auto) % Lymph % (Auto) % [place] % (Auto) % Eos % (Auto) % Baso % (Auto) % Immature Gran # (Auto) (0.00-0.02) K/uL Neut # (Auto) (1.4-6.5) K/uL Lymph # (Auto) (1.2-3.4) K/uL [place] # (Auto) (0.11-0.59) K/uL Eos # (Auto) (0-0.5) K/uL Baso # (Auto) (0-0.2) K/uL ESR (0-21) mm/hr PT (9.0-12.0) Seconds INR (0.9-1.1) APTT (21.0-31.0) Seconds PTT Ratio Sodium 139 (136-145) mmol/L Potassium 3.5 (3.5-5.1) mmol/L Chloride 106 (98-107) mmol/L Carbon Dioxide 27 (21-32) mmol/L Anion Gap 6.0 (3-11) BUN 7 (7-18) mg/dl Creatinine 0.70 (0.6-1.2) mg/dl Est Cr Clr Drug Dosing Not Reportable Est GFR ( Amer) 129.2 Est GFR (Non-Af Amer) 111.5 BUN/Creatinine Ratio 9.3 L (10-20) Glucose 99 (70-99) mg/dl Calcium 9.3 (8.5-10.1) mg/dl Magnesium 2.1 (1.8-2.4) mg/dl Total Bilirubin 0.5 (0.2-1) mg/dl AST 82 H (15-37) U/L ALT 165 H (12-78) U/L Alkaline Phosphatase 131 H (45-117) U/L Total Creatine Kinase 118 (26-192) U/L CK-MB (CK-2) < 1.0 (0.5-3.6) ng/ml CK/CKMB % Calc TNP Troponin I < 0.015 (0-0.045) ng/ml Total Protein 8.1 (6.4-8.2) gm/dl Albumin 4.4 (3.4-5.0) gm/dl Globulin 3.7 (2.5-4.0) gm/dl Albumin/Globulin Ratio 1.2 (0.9-2) Lipase 60 L (73-393) U/L HCG, Qual (Negative) Lyme Disease IgG Ab (Negative) Lyme Disease IgM Ab (Negative) 11/26/18 11/26/18 11/26/18 Range/Units 17:07 17:07 23:12 WBC (4.8-10.8) K/uL RBC (4.2-5.4) M/uL Hgb (12.0-16.0) g/dL Hct (37-47) % MCV (80-100) fL MCH (25-34) pg MCHC (32-36) g/dL RDW Std Deviation (36.4-46.3) fL RDW Coeff of Pablo (11.5-14.5) % Plt Count (130-400) K/uL MPV (7.4-10.4) fL Immature Gran % (Auto) % Neut % (Auto) % Lymph % (Auto) % [place] % (Auto) % Eos % (Auto) % Baso % (Auto) % Immature Gran # (Auto) (0.00-0.02) K/uL Neut # (Auto) (1.4-6.5) K/uL Lymph # (Auto) (1.2-3.4) K/uL [place] # (Auto) (0.11-0.59) K/uL Eos # (Auto) (0-0.5) K/uL Baso # (Auto) (0-0.2) K/uL ESR (0-21) mm/hr PT (9.0-12.0) Seconds INR (0.9-1.1) APTT (21.0-31.0) Seconds PTT Ratio Sodium (136-145) mmol/L Potassium (3.5-5.1) mmol/L Chloride (98-107) mmol/L Carbon Dioxide (21-32) mmol/L Anion Gap (3-11) BUN (7-18) mg/dl Creatinine (0.6-1.2) mg/dl Est Cr Clr Drug Dosing Est GFR ( Amer) Est GFR (Non-Af Amer) BUN/Creatinine Ratio (10-20) Glucose (70-99) mg/dl Calcium (8.5-10.1) mg/dl Magnesium (1.8-2.4) mg/dl Total Bilirubin (0.2-1) mg/dl AST (15-37) U/L ALT (12-78) U/L Alkaline Phosphatase (45-117) U/L Total Creatine Kinase (26-192) U/L CK-MB (CK-2) (0.5-3.6) ng/ml CK/CKMB % Calc Troponin I < 0.015 (0-0.045) ng/ml Total Protein (6.4-8.2) gm/dl Albumin (3.4-5.0) gm/dl Globulin (2.5-4.0) gm/dl Albumin/Globulin Ratio (0.9-2) Lipase (73-393) U/L HCG, Qual Negative (Negative) Lyme Disease IgG Ab Negative (Negative) Lyme Disease IgM Ab Negative (Negative) 11/27/18 Range/Units 03:46 WBC (4.8-10.8) K/uL RBC (4.2-5.4) M/uL Hgb (12.0-16.0) g/dL Hct (37-47) % MCV (80-100) fL MCH (25-34) pg MCHC (32-36) g/dL RDW Std Deviation (36.4-46.3) fL RDW Coeff of Pablo (11.5-14.5) % Plt Count (130-400) K/uL MPV (7.4-10.4) fL Immature Gran % (Auto) % Neut % (Auto) % Lymph % (Auto) % [place] % (Auto) % Eos % (Auto) % Baso % (Auto) % Immature Gran # (Auto) (0.00-0.02) K/uL Neut # (Auto) (1.4-6.5) K/uL Lymph # (Auto) (1.2-3.4) K/uL [place] # (Auto) (0.11-0.59) K/uL Eos # (Auto) (0-0.5) K/uL Baso # (Auto) (0-0.2) K/uL ESR (0-21) mm/hr PT (9.0-12.0) Seconds INR (0.9-1.1) APTT (21.0-31.0) Seconds PTT Ratio Sodium 139 (136-145) mmol/L Potassium 4.0 (3.5-5.1) mmol/L Chloride 108 H (98-107) mmol/L Carbon Dioxide 29 (21-32) mmol/L Anion Gap 2.0 L (3-11) BUN 10 (7-18) mg/dl Creatinine 0.73 (0.6-1.2) mg/dl Est Cr Clr Drug Dosing 84.3 Est GFR ( Amer) 122.8 Est GFR (Non-Af Amer) 106.0 BUN/Creatinine Ratio 13.3 (10-20) Glucose 92 (70-99) mg/dl Calcium 8.3 L (8.5-10.1) mg/dl Magnesium (1.8-2.4) mg/dl Total Bilirubin 0.4 (0.2-1) mg/dl AST 44 H (15-37) U/L ALT 110 H (12-78) U/L Alkaline Phosphatase 106 (45-117) U/L Total Creatine Kinase (26-192) U/L CK-MB (CK-2) (0.5-3.6) ng/ml CK/CKMB % Calc Troponin I < 0.015 (0-0.045) ng/ml Total Protein 6.6 (6.4-8.2) gm/dl Albumin 3.5 (3.4-5.0) gm/dl Globulin 3.1 (2.5-4.0) gm/dl Albumin/Globulin Ratio 1.1 (0.9-2) Lipase (73-393) U/L HCG, Qual (Negative) Lyme Disease IgG Ab (Negative) Lyme Disease IgM Ab (Negative) Imaging Data Radiologist's Impression: Radiology results as stated below per my review and the radiologist's inter pretation: CT angio chest PE protocol CT DOSE: 235.43 mGy.cm HISTORY: 37 years-old Female with PE. Acute chest pain with headache TECHNIQUE: Multiple CTA images of the chest were obtained after the intravenous administration of 86 ml Optiray 320. Coronal and sagittal MIPS were obtained from the axial data set and were submitted for review. All measurements were obtained according to NASCET criteria. A dose lowering technique was utilized adhering to the principles of ALARA. COMPARISON: Chest radiograph of same day. FINDINGS: CTA: Heart is normal in size without pericardial effusion. The thoracic aorta is normal in both course and caliber without aneurysm or dissection. There is patency of the imaged great vessels. The pulmonary arterial tree is opacified to the level of the subsegmental branches and demonstrates no focal filling defects suggest pulmonary thromboembolic disease. CT CHEST: Normal-appearing thyroid. No adenopathy by CT size criteria. No pneumothorax or pleural effusion. No focal airspace consolidation to suggest pneumonia. Mild gurdeep pical pleural-parenchymal scarring with mild subpleural bleb formation versus mild paraseptal emphysema. Likely benign 2 mm solid nodule of the left upper lobe, image 340 series 4. 2 mm solid nodule of the lingula on image 276 series 4. There are a few additional solid nodules noted about the left lung measuring up to 3 mm on image 96 series 4. Appearing fissural lymph node adjacent to the right middle lobe. Pleural-based 4 mm solid nodule of the lateral basal segment right lower lobe, image 65 series 4. Central airways appear patent. Prior cholecystectomy. No acute process of the imaged upper abdomen. Mild dilation of the intrahepatic neck hepatic biliary tree is likely postsurgical. lobulations noted about the left kidney. Soft tissues and breast parenchyma are unremarkable. Bones appear intact. IMPRESSION: 1. No acute intrathoracic abnormality identified, specifically no acute aortic pathology or evidence of thromboembolic disease. 2. No focal airspace consolidation, pleural effusion or adenopathy. 3. Mild biapical pleural-parenchymal scarring with mild upper lobe subpleural bleb formation versus paraseptal emphysema. 4. There are a few bilateral solid pulmonary nodules noted measuring up to 4 mm within the right lower lobe, likely benign. Please refer to below summary of Fleischner criteria recommendations for follow- up of incidental CT nodules (Karissa Best, Guidelines for management of small pulmonary nodules detected on CT scans: A statement from the Fleischner Society, Radiology 237: [phone].) SOLID NODULES Multiple nodules size: <6 mm * Low risk patients: no routine follow-up * high risk patients: optional CT at 12 months Note: newly detected indeterminate nodule in persons 35 years of age or older. * Low risk patients: minimal or absent history of smoking and/or other known risk factors * high risk patients: history of smoking or of other known risk factors (e.g. first degree relative with lung cancer, or exposure to asbestos, radon, uranium) * if a nodule up to 8 mm is partly solid or is ground glass further follow-up is required after 24 months to exclude possible slow growing adenocarcinoma (LUCIE) The above report was generated using voice recognition software. It may contain grammatical, syntax or spelling errors. Electronically signed by: Akash Londono M.D. 11/26/2018 7:40 PM XR chest 1V portable HISTORY: 37 years-old Female CP acute atypical chest pain COMPARISON: None available TECHNIQUE: Portable AP view of the chest FINDINGS: Cardiac mediastinal and hilar silhouettes are within normal limits. There is no pneumothorax, pleural effusion, focal airspace consolidation or overt pulmonary edema. Bones of the chest appear grossly intact. IMPRESSION: No acute process. The above report was generated using voice recognition software. It may contain grammatical, syntax or spelling errors. Electronically signed by: Akash Londono M.D. 11/26/2018 6:[address] head/brain wo con CLINICAL HISTORY: 37 years-old Female with Pt c/o left arm numbness. Acute left arm numbness TECHNIQUE: Multiple axial CT images of the head were obtained without contrast. A dose lowering technique was utilized adhering to the principles of ALARA. CT DOSE: 537.48 mGy.cm COMPARISON: None. FINDINGS: No acute intracranial hemorrhage, midline shift, intracranial mass, hydrocephalus, territorial ischemia or abnormal extra-axial collection. The calvarium is intact. The paranasal sinuses, mastoid air cells, and middle ear cavities are clear. IMPRESSION: No acute intracranial abnormality. The above report was generated using voice recognition software. It may contain grammatical, syntax or spelling errors. Electronically signed by: Akash Londono M.D. 11/26/2018 7:22 PM ECG Data Attestation: I personally reviewed and interpreted this ECG as follows: Indication: chest pain Rate (beats per minute): 77 Rhythm: normal sinus Findings: + other (normal EKG; old septal infarct); no ST depression and no ST elevation Comparison ECG Date: no prior available Blood Pressure Blood Pressure Findings: Normal blood pressure Blood Pressure Disposition: did not require urgent referral MDM Narrative This is a 37-year-old female who presents emergency department complaining of chest pain. She was sent to the emergency department by her primary care physician over concerns that she has new Q waves in her EKG. The patient has also been having multiple bouts of chest pain over the past 48 hours. She is noted to have a normal CK-MB and troponin. Has her primary care physician sent the patient in for chest pain rule out I did discuss the case with the hospitalist service who agreed to admit the patient. Patient was in agreement with the treatment plan. I will note that the patient has normal troponins. Impression & Plan Chest pain Discharge Plan Visit Data *Final* Discharge Date/Time: 11/26/18 22:08 Chief Complaint: Chest Pain Stated Complaint: CHEST PAIN, ABNORMAL EKG ED Provider: Scotty Mercedes Discharge Problem: Chest pain Patient Disposition: Admitted As Inpatient Discharge Instructions Interventions: ED Discharge Assessment Last Done: 11/26/18 22:08 Discharge Problem: Chest pain Qualifiers: Chest pain type: unspecified Qualified Code(s): R07.9 - Chest pain, unspecified The scribe's documentation has been prepared under my direction and personally reviewed by me in its entirety. I confirm that the note above accurately reflects all work, treatment, procedures, and medical decision making performed by me.
== END 2018-11-27 11:15 | disposition home or self-care (01) ==
LOC: ED 16:51 → 2W 16:51 → SUATTDRO 21:49 → 2W 22:08